=== PATIENT | male | born 1950 | race Caucasian/White ===

== ENCOUNTER 2022-07-30 21:27 | Emergency (ER) | payer BC ==
[~2022-07-30] VITALS: Ht 175.3 cm; Wt 79.0 kg
[2022-07-30 21:46] VITALS: BP 155/113
== END 2022-07-30 22:46 | disposition home or self-care (01) ==
LOC: ER 21:28
DX: I10 Essential (primary) hypertension (principal); G89.29 Other chronic pain; M54.9 Dorsalgia, unspecified
CPT/HCPCS: 99281